=== PATIENT | male | born 1980 | race Two or more races ===

== ENCOUNTER 2018-07-23 08:43 | Emergency (ER) | payer OTHER, MEDICAID ==
[~2018-07-23] VITALS: Ht 177.8 cm; Wt 104.3 kg
--- NOTE | 2018-07-23 08:38 | NUR ---
ED Nurse Note: Pt came in for medical clearance and under police custody. Pt c/o SOB and abd pain crampy. VSS. sats 100% in room air. Pt AAO x4, ambulate with steady gait. No respiratory distress.
[~2018-07-23 08:43] MED LIST: UNOBMED
--- NOTE | 2018-07-23 09:06 | Emergency Room Report ---
History of Present Illness General Chief Complaint: Medical Clearance Source: Patient, Law Enforcement Present Illness HPI This patient is brought in by [place] [employer]. He is in custody. He had been using methamphetamine and had complained to them about shortness of breath. They state they did not observe any objective shortness of breath. The patient himself to me did not state shortness of breath. The patient states he feels likes his body is shutting down. He states that he is under a lot of stress related to living on the streets. He also states that he feels like the methamphetamine that he used today was not methamphetamine. He states his body doesn't normally feel like this. He states that he is tired and has self-destructive behavior. He has no other complaints. Allergies: Coded Allergies: No Known Allergies (Unverified , 07/23/18) Patient History Past Medical History: none, see triage record Social History: Reports: drug use; Denies: smoking, alcohol use Reviewed Nursing Documentation: PMH: Agreed; PSxH: Agreed Nursing Documentation-PMH Past Medical History: No Stated History Review of Systems All Other Systems: negative except mentioned in HPI Physical Exam Vital Signs Date Time Temp Pulse Resp B/P (MAP) Pulse Ox O2 Delivery O2 Flow Rate FiO2 07/23/18 08:28 98.1 68 12 134/80 100 Room Air Sp02 EP Interpretation: reviewed, normal General Appearance: no apparent distress, alert, GCS 15, non-toxic Head: normocephalic, atraumatic Eyes: bilateral eye normal inspection, bilateral eye PERRL ENT: hearing grossly normal, normal pharynx, no angioedema, normal voice Neck: full range of motion, supple/symm/no masses Respiratory: chest non-tender, lungs clear, normal breath sounds, no respiratory distress, no retraction, no accessory muscle use, speaking full sentences Cardiovascular #1: regular rate, rhythm, no edema Gastrointestinal: normal bowel sounds, non tender, soft, non-distended, no guarding, no rebound Rectal: deferred Musculoskeletal: back normal, gait/station normal, normal range of motion, non- tender Neurologic: alert, oriented x3, responsive, motor strength/tone normal, sensory intact, speech normal Psychiatric: judgement/insight normal, memory normal, mood/affect normal, no suicidal/homicidal ideation Skin: normal color, no rash, warm/dry, well hydrated Medical Decision Making Diagnostic Impression: Primary Impression: Methamphetamine abuse Additional Impression: Methamphetamine intoxication ER Course The patient's evaluation is most consistent with methamphetamine use. The patient had complained of shortness of breath to the [place] [employer] officers prior to arrival here. Therefore, as a precaution, I did obtain an EKG that was unremarkable. Overall, the patient's evaluation is benign and nontoxic. My medical screening exam did not identify any evidence of an emergency medical condition or further need for workup and an emergency department. The patient had no evidence of respiratory distress or shortness of breath on physical exam and further, the patient did not complain of this to me specifically. The patient complained of his "body shutting down." Patient' s vital signs are normal and overall his evaluation is grossly unremarkable. The patient is cleared for incarceration and further evaluation at [facility] as needed. EKG Diagnostic Results Rate: normal Rhythm: NSR ST Segments: no acute changes Rhythm Strip Diag. Results EP Interpretation: yes Rate: 70's Rhythm: NSR, no PVC's, no ectopy Last Vital Signs Date Time Temp Pulse Resp B/P (MAP) Pulse Ox O2 Delivery O2 Flow Rate FiO2 07/23/18 08:38 68 12 Room Air 07/23/18 08:28 98.1 134/80 100 Disposition: D/C TO LAW ENFORCEMENT IN CUST Condition: Stable Deanna Mahajan DO Jul 23, 2018 09:06
[2018-07-23 09:15] VITALS: BP 132/77
--- NOTE | 2018-07-23 09:15 | NUR ---
ED Nurse Note: Pt cleared by [facility] provider for discharge. ACI given and explained to pt and verbalized understanding of teachings provided. All medical devices such as ID band removed. Pt is AAO x4, ambulatory and left with all personal belongings. Pt left with [employer].
--- NOTE | 2018-07-24 13:46 | Cardiology Report ---
APPROVED REPORT EKG Measurement Heart [id number] Normal sinus rhythm Normal ECG
== END 2018-07-23 09:35 ==
LOC: EDBD 08:43 → EMR 09:35
DX: F15.120 Other stimulant abuse with intoxication, uncomplicated (principal)
CPT/HCPCS: 93005; 99283

== ENCOUNTER 2020-02-26 15:28 | Emergency (ER) | payer MEDICAID, OTHER ==
[~2020-02-26] VITALS: Ht 180.3 cm; Wt 97.5 kg
[2020-02-26 15:38] VITALS: BP 117/75
[2020-02-26] MEDS ORDERED: Methocarbamol 750mg tab ORAL ONE (15:45)
--- NOTE | 2020-02-26 15:54 | Emergency Room Report ---
History of Present Illness General Chief Complaint: Pain Source: Patient Present Illness HPI 40-year-old male with history of chronic joint pain here requesting stronger pain medication. Patient reports that he does not have a primary doctor and has never been seen by pain management. Reports that he usually gets ibuprofen , something stronger. Patient is also asking for us to be a primary doctor and refer him to pain management. Patient denies any recent fall or injury. Has full active motion of all extremities. Does not elaborate on how and why he has chronic pain. Denies any tingling numbness, saddle paresthesia, urinary bowel incontinence. Sitting comfortably with stable vital signs. Patient is neurovascularly intact. 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 Patient History Past Medical History: see triage record Past Surgical History: none Pertinent Family History: none Immunizations: UTD Reviewed Nursing Documentation: PMH: Agreed; PSxH: Agreed Nursing Documentation-PMH Past Medical History: No Stated History Review of Systems All Other Systems: negative except mentioned in HPI Physical Exam Vital Signs Date Time Temp Pulse Resp B/P (MAP) Pulse Ox O2 Delivery O2 Flow Rate FiO2 02/26/20 15:33 98.4 90 18 117/75 (89) 96 Room Air Sp02 EP Interpretation: reviewed, normal General Appearance: no apparent distress, alert, GCS 15, non-toxic Head: normocephalic, atraumatic Eyes: bilateral eye normal inspection, bilateral eye PERRL ENT: hearing grossly normal, normal pharynx, no angioedema, normal voice Neck: full range of motion, supple/symm/no masses Respiratory: chest non-tender, lungs clear, normal breath sounds, speaking full sentences Cardiovascular #1: regular rate, rhythm, no edema Cardiovascular #2: 2+ dorsalis pedis (R), 2+ dorsalis pedis (L) Gastrointestinal: normal bowel sounds, non tender, soft, non-distended, no guarding, no rebound Rectal: deferred Musculoskeletal: back normal, no lower extremity edema, non-tender Neurologic: alert Psychiatric: judgement/insight normal, memory normal, mood/affect normal, no suicidal/homicidal ideation Skin: no rash Lymphatic: no adenopathy Medical Decision Making PA Attestation All diagnosis and treatment plans were discussed and reviewed by my supervising physician Dr. Guy Diagnostic Impression: Primary Impression: Chronic pain ER Course 40-year-old male with history of chronic joint pain here requesting stronger pain medication. Patient reports that he does not have a primary doctor and has never been seen by pain management. Reports that he usually gets ibuprofen , something stronger. Patient is also asking for us to be a primary doctor and refer him to pain management. Patient denies any recent fall or injury. Has full active motion of all extremities. Does not elaborate on how and why he has chronic pain. Denies any tingling numbness, saddle paresthesia, urinary bowel incontinence. Sitting comfortably with stable vital signs. Patient is neurovascularly intact. Ddx considered but are not limited to: Lumbar spine sprain, strain, fracture, contusion, neuropathy, chronic back pain Vital signs: are WNL, pt. is afebrile H&PE are most consistent with: Generalized chronic pain ORDERS: Ibuprofen, Robaxin ER intervention: Ibuprofen, Robaxin DISCHARGE: At this time pt. is stable for d/c to home. Will provide printed patient care instructions, and any necessary prescriptions. Care plan and follow up instructions have been discussed with the patient prior to discharge. List of providers will continue following set with primary doctor as well as pain management, if worsening symptoms return to the emergency room. Last Vital Signs Date Time Temp Pulse Resp B/P (MAP) Pulse Ox O2 Delivery O2 Flow Rate FiO2 02/26/20 15:38 98.4 90 18 117/75 96 Room Air Disposition: HOME, SELF-CARE Condition: Stable Scripts Ibuprofen (Ibu) 800 Mg Tablet 800 MG PO BID, #20 TAB Prov: Devante Connell 02/26/20 Methocarbamol* (ROBAXIN-500*) 500 Mg Tablet 500 MG ORAL TID PRN for For Pain, #15 TAB 0 Refills Prov: Devante Connell 02/26/20 Patient Instructions: Chronic Pain Additional Instructions: Take medication as directed, follow-up with your primary doctor for referral to pain management, if worsening symptoms return to the emergency Devante Connell Feb 26, 2020 15:54
[2020-02-26] MEDS ORDERED: IBU800 MG PO (15:55)
[2020-02-26] MEDS ORDERED: ROBAXIN-500MG ORAL (15:55)
[2020-02-26 16:04] VITALS: BP 117/75
== END 2020-02-26 16:05 | disposition home or self-care (01) ==
LOC: EMR 16:00
DX: G89.29 Other chronic pain (principal)
CPT/HCPCS: 99282